=== PATIENT | male | born 1945 | race Caucasian/White ===

== ENCOUNTER → 2018-09-05 10:33 | Day surgery (SDC) | payer MEDICARE ==
[~2018-09-05 10:33] MED LIST: Benzocaine/Butamben/Tetracain (CETACAINE - SINGLE USE) 5 gm TOPICAL ONE; Buffered Lidocaine 1% SYRIN* 1 ML/SYRINGE INTRADERM ONE; Cisatracurium* 2 MG/ML MDV 5 ML ONE; Dexamethasone IV* 4 MG/ML 1 ML (4 MG) ONE; Glycopyrrolate IV* 0.2 MG/ML 1 ML VIAL ONE; Lactated Ringers 1000 ML Bag* 1,000 ML IV SCH; Levalbuterol 0.63MG/3ML NEB* UNIT OF USE INH ONE; Levalbuterol 0.63MG/3ML NEB* UNIT OF USE INH PRN; Levalbuterol HFA INHALER* 1 PUFF MDI ONE; Lidocaine 2% PF * 5 ML VIAL ONE; Midazolam* 1 MG/ML 5 ML VIAL (5 MG) ONE; Naloxone* 0.4 MG/ML 1 ML VIAL IV PRN; Neostigmine Methylsulfate* 1 MG/ML 10 ML VIAL (1 mg/ml) ONE; Ondansetron INJ* 2 MG/ML VIAL IV PRN; Ondansetron INJ* 2 MG/ML VIAL ONE; Phenylephrine 10 MG/ML VIAL* 1 ML VIAL ONE; Propofol* 10 MG/ML 20 ML BTL ONE; fentaNYL* 50 MCG/ML 2 ML VIAL (100 MCG VIAL) IV PRN; fentaNYL* 50 MCG/ML 2 ML VIAL (100 MCG VIAL) ONE
[2018-09-05 15:23] VITALS: BP 114/60
--- NOTE | 2018-09-05 22:06 | PRO ---
BRONCHOSCOPY REPORT: DATE OF PROCEDURE: 09/05/18 PROCEDURE PERFORMED: Bronchoscopy with endobronchial ultrasound-guided fine needle aspiration of mediastinal and hilar nodes for lung cancer staging. PREPROCEDURAL DIAGNOSIS: Lung cancer. ANESTHESIA: General anesthesia. ANESTHESIOLOGIST: Dr. Qiu. DESCRIPTION OF PROCEDURE: Informed consent was obtained from the patient prior to the procedure after all the risks and benefits were thoroughly explained. The patient was supine on operating room table. Appropriate time-out was agreed on by attending staff. Informed consent was obtained from the patient prior to the procedure. An Ambu scope was passed through ET tube for airway inspection. ET tube positioning confirmed to be 2 cm above the level of michelle. Scope was then advanced into the right bronchial tree which was then inspected. Lots amounts of copious secretions were found and were suctioned out. No endobronchial lesions were noted. The scope was then passed into the left bronchial tube, which was then inspected. The evidence of mild bronchomalacia was noted, no endobronchial lesions were noted. Airways are friable and bleeding with suction trauma. Bronchoscope was then withdrawn and EBUS bronchoscope was inserted. Station R4 was not significantly enlarged and was accessed with 2 passes. Rapid onsite evaluation revealed lymphatic tissue with no malignant cells. Station 7 was then accessed with 2 passes. Rapid onsite evaluation revealed lymphatic cells with no malignant cells. R10 was then accessed with also 2 passes. Rapid onsite evaluation revealed lymphatic tissue with no malignant cells. L4 was then accessed with 2 passes. Rapid onsite evaluation revealed lymphatic cells with no malignant cells. L10 was then accessed with 3 passes. Malignant cells were noted. Air dried cells were also prepared. Rest of this sample was placed in CytoLyt. The patient tolerated the procedure well. The patient was extubated and seen in Recovery in optimal condition. [id number]/[facility] #: [id number] [facility]
== END | disposition home or self-care (01) ==
LOC: OR 10:33
PROVIDERS: ATTEND Internal Medicine
DX: C34.90 Malignant neoplasm of unspecified part of unspecified bronchus or lung (principal); C77.1 Secondary and unspecified malignant neoplasm of intrathoracic lymph nodes; I10 Essential (primary) hypertension; Z95.5 Presence of coronary angioplasty implant and graft; I25.10 Atherosclerotic heart disease of native coronary artery without angina pectoris; J44.9 Chronic obstructive pulmonary disease, unspecified; I42.9 Cardiomyopathy, unspecified; Z79.01 Long term (current) use of anticoagulants; K21.9 Gastro-esophageal reflux disease without esophagitis
CPT/HCPCS: 81445; 88172; 88173; 88177; 88305; A9270-GY; J1100; J2250; J2405; J2704; J2710; J3010

== ENCOUNTER 2018-09-25 06:25 | Day surgery (SDC) | payer MEDICARE ==
[2018-09-25] MEDS ORDERED: Lidocaine 1% INJ* 10 MG/ML 30 ML SDV ONE (07:21)
[2018-09-25 08:46] VITALS: BP 141/82
--- NOTE | 2018-09-25 11:03 | OP ---
CC: Dr. Alejandro Parsons; Dr. Pandey; Dr. Calabrese; Dr. Syed OPERATIVE REPORT: DATE OF OPERATION: 09/25/18 DATE OF : 47 SURGEON: Alejandro Parsons MD EMERGENCY DEPARTMENT RN: None. ANESTHESIOLOGIST: None. PRE-OP DIAGNOSIS: Carcinoma of the lung. POST-OP DIAGNOSIS: Carcinoma of the lung. OPERATIVE PROCEDURE: Placement of 8-Burmese right subclavian PowerPort. DESCRIPTION OF PROCEDURE: The patient was supine on the operative table in the local room. The [facility] t chest and neck region was prepped with antiseptic and draped in a sterile fashion. Local infiltrat mimi anesthesia was administered. The subclavian incision was created approximately 3 cm in length. Inferior pocket was created. The port was sutured into the pocket with 2-0 Prolene. Venipuncture wa s carried out easily. The guidewire passed under fluoroscopic guidance. Catheter passed through the peel-away introducer, measured, and cut at 23 cm, attached to the port, which was already sutured in the pocket and the pocket was closed with 3- 0 and 5-0 Vicryl, followed by Steri-Strips. The port h ad good blood return and was flushed with saline solution and then final heparin solution. He tolera celena this well. He was brought to Recovery in good condition. No complications. No drains. No patho logic specimen. Sponge and instrument counts correct. Estimated blood loss less than 10 mL. [id number]/[facility] #: [id number]
== END 2018-09-25 08:46 | disposition home or self-care (01) ==
LOC: OR 06:25
PROVIDERS: ATTEND Surgery
DX: C34.92 Malignant neoplasm of unspecified part of left bronchus or lung (principal); Z87.891 Personal history of nicotine dependence; I10 Essential (primary) hypertension; I25.10 Atherosclerotic heart disease of native coronary artery without angina pectoris; Z95.5 Presence of coronary angioplasty implant and graft; K21.9 Gastro-esophageal reflux disease without esophagitis; E78.5 Hyperlipidemia, unspecified; I25.2 Old myocardial infarction; M19.90 Unspecified osteoarthritis, unspecified site
CPT/HCPCS: 71045; 76000; C1788; J1642

== ENCOUNTER 2019-10-10 09:57 | Inpatient (IN) ==
[2019-10-10] MEDS ORDERED: NS 0.9% 1000 ml BAG 1,000 ML IV ONE (10:05)
[2019-10-10] MEDS ORDERED: Morphine 4 MG/ML VIAL (1 ml) IV ONE ×2 (10:05→13:07)
[2019-10-10] MEDS ORDERED: Ondansetron 4 mg VIAL 2 MG/ML 2 ml VIAL IV ONE (10:05)
[2019-10-10 10:55] LABS: Albumin 3.6 g/dL (3.2-5.2); Albumin/Globulin Ratio 1.9 (1-3); BUN/Creatinine Ratio 25.6 (8-20); Calcium 8.2 mg/dL (8.6-10.3); EGFR African American 68.5 (>60); EGFR Non-African American 56.6 (>60); Globulin 1.9 g/dL (2-4); Potassium 3.7 mmol/L (3.5-5.0); Total Bilirubin 0.4 mg/dL (0.2-1.0); Total Protein 5.5 g/dL (6.4-8.9)
[2019-10-10] MEDS ORDERED: Iodixanol (CONTRAST) 320 MG/ML 100 ML SDV IV ONE (11:19)
[2019-10-10 11:38] LABS: Hematocrit 37 % (42-52); Hemoglobin 12.4 g/dL (14.0-18.0); Mean Corpuscular HGB Conc 33 g/dL (31-36); Mean Corpuscular Hemoglobin 33 pg (27-31); Mean Corpuscular Volume 100 fL (80-94); Mean Platelet Volume 8.3 fL (7.4-10.4); Platelet Count 174 10^3/uL (150-450); Red Blood Count 3.72 10^6 /uL (4.18-5.48); Red Cell Distribution Width 19 % (10-15); White Blood Count 16.4 10^3/uL (3.5-10.8)
[2019-10-10 12:29] LABS: ABS Lymphocytes 0.7 10^3/ul (1.0-4.8); ABS Monocytes 1.5 10^3/ul (0-0.8); Nucleated Red Blood Cells % 0.3
[2019-10-10] MEDS ORDERED: Albuterol/Ipratropium NEB.SOL (2.5/0.5 MG) 3 ML NEB.SOLN INH PRN (15:17)
[2019-10-10] MEDS: NS 0.9% 1000 ml BAG 1,000 ML IV SCH (17:04)
[2019-10-10] MEDS: Metoprolol Tartrate 5 mg VIAL 5 ml VIAL (1 mg/ml) IV SCH ×2 (17:54→22:43)
[2019-10-10] MEDS: Enoxaparin 80 MG/0.8 ML SYR(*) SUBCUT SCH (17:54)
[2019-10-10] MEDS: methylPREDNISolone SOD 40 mg/ml 1 ml VIAL IV SCH (17:56)
[2019-10-10] MEDS ORDERED: Piperacillin/Tazobac ADVAN(*) 3.375 GM in NS 0.9% 100 ml BAG 100 ML IV ONE (23:30)
[2019-10-10 23:32] LABS: Hematocrit 39 % (42-52); Hemoglobin 13.1 g/dL (14.0-18.0); Mean Corpuscular HGB Conc 34 g/dL (31-36); Mean Corpuscular Hemoglobin 34 pg (27-31); Mean Corpuscular Volume 100 fL (80-94); Mean Platelet Volume 7.4 fL (7.4-10.4); Platelet Count 159 10^3/uL (150-450); Red Blood Count 3.89 10^6 /uL (4.18-5.48); Red Cell Distribution Width 20 % (10-15); White Blood Count 20.9 10^3/uL (3.5-10.8)
[2019-10-10] MEDS ORDERED: Zosyn per Pharmacy NOTE FOLLOW UP SCH ×2 (23:45)
[2019-10-10 23:49] LABS: BUN/Creatinine Ratio 22.8 (8-20); Calcium 7.7 mg/dL (8.6-10.3); EGFR African American 67.3 (>60); EGFR Non-African American 55.6 (>60); Potassium 4.7 mmol/L (3.5-5.0)
[2019-10-10 23:56] LABS: ABS Lymphocytes 0.3 10^3/ul (1.0-4.8); ABS Monocytes 1.6 10^3/ul (0-0.8); ABS Nucleated RBC 0.1 10^3/ul; Lymphocyte % 1.2 %; Nucleated Red Blood Cells % 0.2
[2019-10-10 23:57] LABS: Polychromasia 1+
[2019-10-11 00:03] LABS: Urine Appearance Clear; Urine Bilirubin Negative (Negative); Urine Blood 1+ (Negative); Urine Color Yellow; Urine Glucose Negative (Negative); Urine Ketones Negative (Negative); Urine Nitrite Negative (Negative); Urine Protein Negative (Negative); Urine Specific Gravity 1.035 (1.010-1.030); Urine Urobilinogen Negative (Negative)
[2019-10-11 00:06] LABS: Urine Bacteria Absent (Absent); Urine Red Blood Cell Trace(0-2/hpf) (Absent); Urine Squamous Epithelial Cell Present (Absent); Urine White Blood Cell Absent (Absent)
[2019-10-11] MEDS: Metoprolol Tartrate 5 mg VIAL 5 ml VIAL (1 mg/ml) IV SCH ×4 (04:03→21:51)
[2019-10-11] MEDS: Enoxaparin 80 MG/0.8 ML SYR(*) SUBCUT SCH (04:07)
[2019-10-11] MEDS: NS 0.9% 1000 ml BAG 1,000 ML IV SCH ×2 (04:07→14:45)
[2019-10-11] MEDS: ZOSYN 3.375 GM Q8H per EXTENDED INFUSION IV SCH ×3 (04:10→20:03)
[2019-10-11 06:25] LABS: Hematocrit 38 % (42-52); Hemoglobin 12.8 g/dL (14.0-18.0); Mean Corpuscular HGB Conc 34 g/dL (31-36); Mean Corpuscular Hemoglobin 34 pg (27-31); Mean Corpuscular Volume 100 fL (80-94); Mean Platelet Volume 7.8 fL (7.4-10.4); Platelet Count 149 10^3/uL (150-450); Red Cell Distribution Width 20 % (10-15); White Blood Count 21.5 10^3/uL (3.5-10.8)
[2019-10-11 06:29] LABS: ABS Basophils 0.1 10^3/ul (0-0.2); ABS Lymphocytes 0.3 10^3/ul (1.0-4.8); ABS Monocytes 1.8 10^3/ul (0-0.8); Lymphocyte % 1.5 %
[2019-10-11 06:41] LABS: BUN/Creatinine Ratio 23.3 (8-20); Calcium 7.3 mg/dL (8.6-10.3); EGFR African American 66.1 (>60); EGFR Non-African American 54.6 (>60); Potassium 4.2 mmol/L (3.5-5.0)
[2019-10-11] MEDS: Tiotropium Brom/Olodaterol MDI INH SCH (08:11)
[2019-10-11] MEDS: Pantoprazole VIAL 40 MG VIAL IV SCH (08:28)
[2019-10-11] MEDS: methylPREDNISolone SOD 40 mg/ml 1 ml VIAL IV SCH (16:01)
[2019-10-12] MEDS: NS 0.9% 1000 ml BAG 1,000 ML IV SCH ×3 (01:08→20:42)
[2019-10-12] MEDS: ZOSYN 3.375 GM Q8H per EXTENDED INFUSION IV SCH ×3 (04:20→20:39)
[2019-10-12] MEDS: Metoprolol Tartrate 5 mg VIAL 5 ml VIAL (1 mg/ml) IV SCH ×4 (04:20→22:42)
[2019-10-12 06:21] LABS: ABS Lymphocytes 0.2 10^3/ul (1.0-4.8); ABS Monocytes 0.8 10^3/ul (0-0.8); Hematocrit 34 % (42-52); Hemoglobin 11.2 g/dL (14.0-18.0); Lymphocyte % 1.9 %; Mean Corpuscular HGB Conc 33 g/dL (31-36); Mean Corpuscular Hemoglobin 33 pg (27-31); Mean Corpuscular Volume 100 fL (80-94); Mean Platelet Volume 7.9 fL (7.4-10.4); Platelet Count 124 10^3/uL (150-450); Red Cell Distribution Width 20 % (10-15); White Blood Count 11.2 10^3/uL (3.5-10.8)
[2019-10-12 06:31] LABS: BUN/Creatinine Ratio 29.2 (8-20); Calcium 7.6 mg/dL (8.6-10.3); EGFR African American 65.5 (>60); EGFR Non-African American 54.1 (>60); Magnesium 2.2 mg/dL (1.9-2.7); Potassium 3.7 mmol/L (3.5-5.0)
[2019-10-12] MEDS: Tiotropium Brom/Olodaterol MDI INH SCH (10:27)
[2019-10-12] MEDS: methylPREDNISolone SOD 40 mg/ml 1 ml VIAL IV SCH ×2 (10:28→17:02)
[2019-10-12] MEDS: Pantoprazole VIAL 40 MG VIAL IV SCH (10:42)
[2019-10-12] MEDS ORDERED: Regadenoson 0.4 MG/5 ML SYRINGE ONE (13:13)
[2019-10-12] MEDS ORDERED: Heparin 5000 UNITS/ML VIAL(*) 1 ml vial IV SCH (15:00)
[2019-10-12] MEDS: Heparin DRIP 25,000 UNITS(*) 25,000 UNITS/500 ML BAG IV SCH (16:52)
[2019-10-13] MEDS: Metoprolol Tartrate 5 mg VIAL 5 ml VIAL (1 mg/ml) IV SCH ×3 (04:18→16:59)
[2019-10-13] MEDS: ZOSYN 3.375 GM Q8H per EXTENDED INFUSION IV SCH ×3 (04:19→21:45)
[2019-10-13 06:12] LABS: ABS Lymphocytes 0.2 10^3/ul (1.0-4.8); ABS Monocytes 0.8 10^3/ul (0-0.8); Hematocrit 28 % (42-52); Hemoglobin 9.2 g/dL (14.0-18.0); Lymphocyte % 1.9 %; Mean Corpuscular HGB Conc 33 g/dL (31-36); Mean Corpuscular Hemoglobin 34 pg (27-31); Mean Corpuscular Volume 101 fL (80-94); Red Blood Count 2.73 10^6 /uL (4.18-5.48); Red Cell Distribution Width 20 % (10-15); White Blood Count 11.2 10^3/uL (3.5-10.8)
[2019-10-13 06:27] LABS: BUN/Creatinine Ratio 32.4 (8-20); EGFR African American 86.6 (>60); EGFR Non-African American 71.6 (>60); Potassium 3.4 mmol/L (3.5-5.0)
[2019-10-13 06:38] LABS: Mean Platelet Volume 8.3 fL (7.4-10.4); Platelet Count 98 10^3/uL (150-450)
[2019-10-13] MEDS: NS 0.9% 1000 ml BAG 1,000 ML IV SCH ×2 (07:30→18:55)
[2019-10-13] MEDS ORDERED: Potassium Chlor 20 meq TAB.ER PO ONE (08:19)
[2019-10-13] MEDS: Heparin DRIP 25,000 UNITS(*) 25,000 UNITS/500 ML BAG IV SCH (09:09)
[2019-10-13] MEDS ORDERED: KCL 20 MEQ/100 ML IVPREMIX 20 MEQ/100 ML BAG IV ONE (10:06)
[2019-10-13] MEDS: Pantoprazole VIAL 40 MG VIAL IV SCH (10:35)
[2019-10-13] MEDS: methylPREDNISolone SOD 40 mg/ml 1 ml VIAL IV SCH ×2 (10:35→16:59)
[2019-10-13] MEDS: Tiotropium Brom/Olodaterol MDI INH SCH (12:13)
[2019-10-13] MEDS: Enoxaparin 80 MG/0.8 ML SYR(*) SUBCUT SCH (13:26)
[2019-10-13 13:38] LABS: Hematocrit 27 % (42-52); Hemoglobin 9.2 g/dL (14.0-18.0); Mean Corpuscular HGB Conc 34 g/dL (31-36); Mean Corpuscular Hemoglobin 34 pg (27-31); Mean Corpuscular Volume 100 fL (80-94); Mean Platelet Volume 8.2 fL (7.4-10.4); Platelet Count 100 10^3/uL (150-450); Red Blood Count 2.68 10^6 /uL (4.18-5.48); Red Cell Distribution Width 20 % (10-15); White Blood Count 11.4 10^3/uL (3.5-10.8)
[2019-10-13] MEDS ORDERED: Metoprolol Tartrate 5 mg VIAL 5 ml VIAL (1 mg/ml) IV PRN (22:48)
[2019-10-14] MEDS: Enoxaparin 80 MG/0.8 ML SYR(*) SUBCUT SCH ×2 (01:09→13:55)
[2019-10-14] MEDS: NS 0.9% 1000 ml BAG 1,000 ML IV SCH (04:49)
[2019-10-14] MEDS: ZOSYN 3.375 GM Q8H per EXTENDED INFUSION IV SCH ×3 (04:49→19:52)
[2019-10-14 06:39] LABS: ABS Lymphocytes 0.2 10^3/ul (1.0-4.8); ABS Monocytes 0.7 10^3/ul (0-0.8); Hematocrit 26 % (42-52); Hemoglobin 8.8 g/dL (14.0-18.0); Lymphocyte % 2.1 %; Mean Corpuscular HGB Conc 34 g/dL (31-36); Mean Corpuscular Hemoglobin 34 pg (27-31); Mean Corpuscular Volume 100 fL (80-94); Mean Platelet Volume 8.3 fL (7.4-10.4); Nucleated Red Blood Cells % 0.2; Platelet Count 104 10^3/uL (150-450); Red Blood Count 2.62 10^6 /uL (4.18-5.48); Red Cell Distribution Width 20 % (10-15); White Blood Count 9.4 10^3/uL (3.5-10.8)
[2019-10-14] MEDS: methylPREDNISolone SOD 40 mg/ml 1 ml VIAL IV SCH ×2 (07:51→18:26)
[2019-10-14] MEDS: Tiotropium Brom/Olodaterol MDI INH SCH (07:53)
[2019-10-14] MEDS: Pantoprazole VIAL 40 MG VIAL IV SCH (07:53)
[2019-10-14 08:45] LABS: BUN/Creatinine Ratio 37.6 (8-20); Calcium 7.7 mg/dL (8.6-10.3); EGFR African American 96.4 (>60); EGFR Non-African American 79.6 (>60); Potassium 3.7 mmol/L (3.5-5.0)
[2019-10-14 09:59] LABS: Albumin 2.7 g/dL (3.2-5.2); Albumin/Globulin Ratio 1.5 (1-3); Globulin 1.8 g/dL (2-4); Indirect Bilirubin 0.3 mg/dL (0.3-1.0); Total Bilirubin 0.4 mg/dL (0.2-1.0); Total Protein 4.5 g/dL (6.4-8.9)
[2019-10-14] MEDS: Metoprolol Tartrate 5 mg VIAL 5 ml VIAL (1 mg/ml) IV SCH (18:55)
[2019-10-15] MEDS: Enoxaparin 80 MG/0.8 ML SYR(*) SUBCUT SCH (00:21)
[2019-10-15] MEDS: ZOSYN 3.375 GM Q8H per EXTENDED INFUSION IV SCH (04:10)
[2019-10-15 05:15] LABS: ABS Lymphocytes 0.2 10^3/ul (1.0-4.8); ABS Monocytes 0.7 10^3/ul (0-0.8); Hematocrit 26 % (42-52); Hemoglobin 8.6 g/dL (14.0-18.0); Lymphocyte % 2.4 %; Mean Corpuscular HGB Conc 33 g/dL (31-36); Mean Corpuscular Hemoglobin 34 pg (27-31); Mean Corpuscular Volume 100 fL (80-94); Mean Platelet Volume 8.2 fL (7.4-10.4); Nucleated Red Blood Cells % 0.1; Platelet Count 106 10^3/uL (150-450); Red Blood Count 2.58 10^6 /uL (4.18-5.48); Red Cell Distribution Width 19 % (10-15); White Blood Count 7.6 10^3/uL (3.5-10.8)
[2019-10-15 05:30] LABS: Calcium 7.4 mg/dL (8.6-10.3); EGFR African American 97.6 (>60); EGFR Non-African American 80.6 (>60); Potassium 3.9 mmol/L (3.5-5.0)
[2019-10-15] MEDS: Pantoprazole VIAL 40 MG VIAL IV SCH (08:17)
[2019-10-15] MEDS: Tiotropium Brom/Olodaterol MDI INH SCH (08:17)
[2019-10-15] MEDS: methylPREDNISolone SOD 40 mg/ml 1 ml VIAL IV SCH ×2 (08:17→11:59)
[2019-10-15 08:52] VITALS: BP 119/60
[2019-10-15] MEDS ORDERED: Multivitamins/Minerals TAB PO SCH (09:00)
[2019-10-15] MEDS ORDERED: Aspirin EC 81 mg TAB.EC (enteric coated) PO SCH (09:00)
== END 2019-10-15 11:56 | disposition home or self-care (01) | DRG 394 ==
LOC: ED 09:57 → SSU 16:02
PROVIDERS: ADMIT Internal Medicine; ATTEND Internal Medicine

== ENCOUNTER 2019-11-10 11:10 | Inpatient (IN) ==
[2019-11-12] MEDS: Fluconazole 200 MG IVPREMIX 200 MG/100 ML BAG IVPB SCH (13:21)
[2019-11-12] MEDS: TPN CENTRAL STANDARD BASE B CENT\\PICC SCH (17:20)
[2019-11-12] MEDS ORDERED: Morphine 10 MG/ML VIAL (1 ml) IV ONE (17:59)
[2019-11-12] MEDS ORDERED: Enoxaparin 80 MG/0.8 ML SYR SUBCUT SCH (18:00)
[2019-11-12] MEDS: Enoxaparin 80 MG/0.8 ML SYR SUBCUT SCH (20:50)
[2019-11-12] MEDS: Hydrocortisone INJ 100 MG/2ML 2 ML VIAL IV SCH (20:57)
[2019-11-13 05:03] LABS: Hematocrit 23 % (42-52); Hemoglobin 7.6 g/dL (14.0-18.0); Mean Corpuscular HGB Conc 33 g/dL (31-36); Mean Corpuscular Hemoglobin 33 pg (27-31); Mean Corpuscular Volume 102 fL (80-94); Mean Platelet Volume 8.3 fL (7.4-10.4); Platelet Count 147 10^3/uL (150-450); Red Blood Count 2.28 10^6 /uL (4.18-5.48); Red Cell Distribution Width 22 % (10-15); White Blood Count 9.1 10^3/uL (3.5-10.8)
[2019-11-13 05:20] LABS: Albumin 2.4 g/dL (3.2-5.2); Albumin/Globulin Ratio 1.3 (1-3); Calcium 8.2 mg/dL (8.6-10.3); EGFR African American 96.4 (>60); EGFR Non-African American 79.6 (>60); Globulin 1.9 g/dL (2-4); Potassium 4.4 mmol/L (3.5-5.0); Total Bilirubin 0.3 mg/dL (0.2-1.0); Total Protein 4.3 g/dL (6.4-8.9)
[2019-11-13] MEDS: Tiotropium Brom/Olodaterol MDI INH SCH (08:39)
[2019-11-13] MEDS: Pantoprazole VIAL 40 MG VIAL IV SCH (08:39)
[2019-11-13] MEDS: Enoxaparin 80 MG/0.8 ML SYR SUBCUT SCH ×2 (08:40→21:34)
[2019-11-13] MEDS: Hydrocortisone INJ 100 MG/2ML 2 ML VIAL IV SCH ×2 (08:40→21:43)
[2019-11-13 08:53] LABS: Polychromasia 2+
[2019-11-13 08:54] LABS: ABS Basophils 0.1 10^3/ul (0-0.2); ABS Lymphocytes 0.6 10^3/ul (1.0-4.8); ABS Monocytes 0.7 10^3/ul (0-0.8); ABS Neutrophils 7.6 10^3/ul (1.5-7.7); ABS Nucleated RBC 0.1 10^3/ul; Eosinophil % 0.3 %; Lymphocyte % 7.1 %; Nucleated Red Blood Cells % 1.1
[2019-11-13] MEDS: D5W IVPB SCH (09:07)
[2019-11-13] MEDS: TRIMETH IVPB SCH (09:07)
[2019-11-13] MEDS: SULFAMETHOXAZOLE IVPB SCH (09:07)
[2019-11-13] MEDS: Fluconazole 200 MG IVPREMIX 200 MG/100 ML BAG IVPB SCH (13:12)
[2019-11-13] MEDS: TPN CENTRAL STANDARD BASE B CENT\\PICC SCH (17:17)
[2019-11-14 05:28] LABS: Magnesium 1.7 mg/dL (1.9-2.7)
[2019-11-14] MEDS: Enoxaparin 80 MG/0.8 ML SYR SUBCUT SCH ×2 (08:44→23:07)
[2019-11-14] MEDS: Tiotropium Brom/Olodaterol MDI INH SCH (08:46)
[2019-11-14] MEDS: Pantoprazole VIAL 40 MG VIAL IV SCH (08:47)
[2019-11-14] MEDS: Hydrocortisone INJ 100 MG/2ML 2 ML VIAL IV SCH ×2 (08:49→23:08)
[2019-11-14] MEDS: TPN CENTRAL STANDARD BASE B CENT\\PICC SCH (18:10)
[2019-11-14 18:59] LABS: Hematocrit 23 % (42-52); Hemoglobin 7.3 g/dL (14.0-18.0); Mean Corpuscular HGB Conc 32 g/dL (31-36); Mean Corpuscular Hemoglobin 33 pg (27-31); Mean Corpuscular Volume 103 fL (80-94); Mean Platelet Volume 8.3 fL (7.4-10.4); Platelet Count 149 10^3/uL (150-450); Red Cell Distribution Width 22 % (10-15); White Blood Count 8.4 10^3/uL (3.5-10.8)
[2019-11-14] MEDS: Morphine 2 MG/ML SYRINGE IV PRN (19:16)
[2019-11-14 19:38] LABS: ABS Lymphocytes 0.7 10^3/ul (1.0-4.8); ABS Monocytes 0.7 10^3/ul (0-0.8); ABS Neutrophils 6.9 10^3/ul (1.5-7.7); ABS Nucleated RBC 0.1 10^3/ul; Eosinophil % 0.2 %; Lymphocyte % 8.7 %; Nucleated Red Blood Cells % 1.7
[2019-11-14 19:41] LABS: Polychromasia 2+
[2019-11-14 20:30] LABS: Albumin 2.3 g/dL (3.2-5.2); Calcium 7.6 mg/dL (8.6-10.3); Magnesium 1.7 mg/dL (1.9-2.7); Potassium 4.7 mmol/L (3.5-5.0); Total Bilirubin 0.3 mg/dL (0.2-1.0)
[2019-11-14 20:36] LABS: Albumin/Globulin Ratio 1.4 (1-3); EGFR African American 88.6 (>60); EGFR Non-African American 73.2 (>60); Globulin 1.6 g/dL (2-4); Phosphorus 3.4 mg/dL (2.5-5.0); Total Protein 3.9 g/dL (6.4-8.9)
[2019-11-15 06:49] LABS: Hematocrit 24 % (42-52); Mean Corpuscular HGB Conc 33 g/dL (31-36); Mean Corpuscular Hemoglobin 33 pg (27-31); Mean Corpuscular Volume 100 fL (80-94); Mean Platelet Volume 8.6 fL (7.4-10.4); Platelet Count 123 10^3/uL (150-450); Red Blood Count 2.43 10^6 /uL (4.18-5.48); Red Cell Distribution Width 20 % (10-15); White Blood Count 8.2 10^3/uL (3.5-10.8)
[2019-11-15] MEDS: Tiotropium Brom/Olodaterol MDI INH SCH (08:58)
[2019-11-15] MEDS: Enoxaparin 80 MG/0.8 ML SYR SUBCUT SCH ×2 (09:03→09:28)
[2019-11-15] MEDS: Hydrocortisone INJ 100 MG/2ML 2 ML VIAL IV SCH ×2 (09:29→22:06)
[2019-11-15] MEDS: Pantoprazole VIAL 40 MG VIAL IV SCH (09:29)
[2019-11-15] MEDS: TPN CENTRAL STANDARD BASE B CENT\\PICC SCH (17:50)
[2019-11-15] MEDS: Enoxaparin 60 MG/0.6 ML SYR SUBCUT SCH (22:05)
[2019-11-16] MEDS: Tiotropium Brom/Olodaterol MDI INH SCH (09:31)
[2019-11-16] MEDS: Enoxaparin 60 MG/0.6 ML SYR SUBCUT SCH ×2 (09:32→20:42)
[2019-11-16] MEDS: Hydrocortisone INJ 100 MG/2ML 2 ML VIAL IV SCH ×2 (09:34→20:44)
[2019-11-16] MEDS: Pantoprazole VIAL 40 MG VIAL IV SCH (09:46)
[2019-11-16] MEDS: D5W IVPB SCH (09:47)
[2019-11-16] MEDS: TRIMETH IVPB SCH (09:47)
[2019-11-16] MEDS: SULFAMETHOXAZOLE IVPB SCH (09:47)
[2019-11-16] MEDS ORDERED: Morphine 2 MG/ML SYRINGE IV ONE (12:22)
[2019-11-16] MEDS: TPN CENTRAL STANDARD BASE B CENT\\PICC SCH (17:54)
[2019-11-17 06:02] LABS: Albumin 2.2 g/dL (3.2-5.2); Calcium 7.5 mg/dL (8.6-10.3); Magnesium 1.7 mg/dL (1.9-2.7); Potassium 4.6 mmol/L (3.5-5.0); Total Bilirubin 0.3 mg/dL (0.2-1.0)
[2019-11-17 06:08] LABS: Albumin/Globulin Ratio 1.4 (1-3); BUN/Creatinine Ratio 27.4 (8-20); EGFR African American 108.4 (>60); EGFR Non-African American 89.6 (>60); Globulin 1.6 g/dL (2-4); Phosphorus 2.3 mg/dL (2.5-5.0); Total Protein 3.8 g/dL (6.4-8.9)
[2019-11-17] MEDS: Tiotropium Brom/Olodaterol MDI INH SCH (08:41)
[2019-11-17] MEDS: Enoxaparin 60 MG/0.6 ML SYR SUBCUT SCH ×2 (08:42→21:29)
[2019-11-17] MEDS: Hydrocortisone INJ 100 MG/2ML 2 ML VIAL IV SCH ×2 (08:43→21:29)
[2019-11-17] MEDS: Pantoprazole VIAL 40 MG VIAL IV SCH (08:44)
[2019-11-17] MEDS: TPN CENTRAL STANDARD BASE B CENT\\PICC SCH (17:36)
[2019-11-18 08:01] LABS: ABS Lymphocytes 0.6 10^3/ul (1.0-4.8); ABS Monocytes 0.7 10^3/ul (0-0.8); ABS Neutrophils 3.9 10^3/ul (1.5-7.7); ABS Nucleated RBC 0.2 10^3/ul; Eosinophil % 0.2 %; Hematocrit 20 % (42-52); Hemoglobin 6.8 g/dL (14.0-18.0); Lymphocyte % 11.8 %; Mean Corpuscular HGB Conc 33 g/dL (31-36); Mean Corpuscular Hemoglobin 34 pg (27-31); Mean Corpuscular Volume 102 fL (80-94); Mean Platelet Volume 8.9 fL (7.4-10.4); Nucleated Red Blood Cells % 3.8; Platelet Count 113 10^3/uL (150-450); Red Blood Count 2.01 10^6 /uL (4.18-5.48); Red Cell Distribution Width 21 % (10-15); White Blood Count 5.2 10^3/uL (3.5-10.8)
[2019-11-18 08:50] LABS: Microcytosis 1+; Polychromasia 1+
[2019-11-18] MEDS: Tiotropium Brom/Olodaterol MDI INH SCH (09:04)
[2019-11-18] MEDS: Enoxaparin 60 MG/0.6 ML SYR SUBCUT SCH ×2 (10:15→21:06)
[2019-11-18] MEDS: Hydrocortisone INJ 100 MG/2ML 2 ML VIAL IV SCH ×2 (10:20→21:09)
[2019-11-18] MEDS: Pantoprazole VIAL 40 MG VIAL IV SCH (10:21)
[2019-11-18] MEDS: D5W IVPB SCH (11:02)
[2019-11-18] MEDS: TRIMETH IVPB SCH (11:02)
[2019-11-18] MEDS: SULFAMETHOXAZOLE IVPB SCH (11:02)
[2019-11-18] MEDS ORDERED: Morphine 10 MG/ML VIAL (1 ml) IV ONE (14:00)
[2019-11-18] MEDS: TPN CENTRAL STANDARD BASE B CENT\\PICC SCH (17:27)
[2019-11-19] MEDS: Tiotropium Brom/Olodaterol MDI INH SCH (08:34)
[2019-11-19] MEDS: Enoxaparin 60 MG/0.6 ML SYR SUBCUT SCH ×2 (08:35→21:17)
[2019-11-19] MEDS: Morphine 2 MG/ML SYRINGE IV PRN (11:44)
[2019-11-19] MEDS ORDERED: Morphine 2 MG/ML SYRINGE IV ONE (14:00)
[2019-11-20 06:39] LABS: Hematocrit 24 % (42-52); Hemoglobin 8.3 g/dL (14.0-18.0); Mean Corpuscular HGB Conc 34 g/dL (31-36); Mean Corpuscular Hemoglobin 34 pg (27-31); Mean Corpuscular Volume 99 fL (80-94); Mean Platelet Volume 8.4 fL (7.4-10.4); Platelet Count 127 10^3/uL (150-450); Red Blood Count 2.45 10^6 /uL (4.18-5.48); Red Cell Distribution Width 20 % (10-15); White Blood Count 8.3 10^3/uL (3.5-10.8)
[2019-11-20 06:58] LABS: Albumin 2.4 g/dL (3.2-5.2); Albumin/Globulin Ratio 1.2 (1-3); BUN/Creatinine Ratio 28.9 (8-20); Calcium 7.4 mg/dL (8.6-10.3); EGFR African American 121.6 (>60); EGFR Non-African American 100.5 (>60); Magnesium 1.7 mg/dL (1.9-2.7); Phosphorus 4.1 mg/dL (2.5-5.0); Potassium 4.1 mmol/L (3.5-5.0); Total Bilirubin 0.4 mg/dL (0.2-1.0); Total Protein 4.4 g/dL (6.4-8.9)
[2019-11-20 07:46] LABS: ABS Lymphocytes 0.7 10^3/ul (1.0-4.8); ABS Monocytes 0.8 10^3/ul (0-0.8); ABS Neutrophils 6.7 10^3/ul (1.5-7.7); ABS Nucleated RBC 0.1 10^3/ul; Eosinophil % 0.5 %; Lymphocyte % 8.5 %; Nucleated Red Blood Cells % 1.4
[2019-11-20 07:50] LABS: Polychromasia 1+
[2019-11-20] MEDS: Tiotropium Brom/Olodaterol MDI INH SCH (08:36)
[2019-11-20] MEDS: Enoxaparin 60 MG/0.6 ML SYR SUBCUT SCH ×2 (08:40→21:37)
[2019-11-20] MEDS: Sulfamethox/Trimethoprim DS TAB 800/160 mg PO SCH (08:55)
[2019-11-20] MEDS: Morphine 2 MG/ML SYRINGE IV PRN (09:15)
[2019-11-20] MEDS ORDERED: Morphine 2 MG/ML SYRINGE IV ONE (10:15)
[2019-11-20] MEDS ORDERED: Morphine 10 MG/ML VIAL (1 ml) IV ONE (10:25)
[2019-11-21] MEDS: Enoxaparin 60 MG/0.6 ML SYR SUBCUT SCH ×2 (09:39→21:09)
[2019-11-21] MEDS: Tiotropium Brom/Olodaterol MDI INH SCH (09:39)
[2019-11-21 12:14] LABS: Corrected Retic Count 3.1 % (0.5-1.5); Hematocrit for Retic CNT 26 % (42-52); Immature Retic Fraction 0.76; RBC Retic Count 2.62 10^6/uL (4.18-5.48)
[2019-11-21] MEDS: Morphine 2 MG/ML SYRINGE IV PRN (18:21)
[2019-11-21] MEDS ORDERED: Sodium Phosphate ADULT ENEMA 133 ML BTL ONE (19:04)
[2019-11-21] MEDS ORDERED: Morphine 2 MG/ML SYRINGE ONE (19:05)
[2019-11-21] MEDS ORDERED: Sodium Phosphate ADULT ENEMA 133 ML BTL PR ONE (19:30)
[2019-11-21] MEDS ORDERED: Morphine 2 MG/ML SYRINGE IV ONE (19:30)
[2019-11-21] MEDS ORDERED: Mineral Oil ENEMA 118 ML/BOTTLE BOTTLE PR PRN (22:10)
[2019-11-21] MEDS ORDERED: Sodium Phosphate ADULT ENEMA 133 ML BTL PR PRN (22:10)
[2019-11-22] MEDS: Tiotropium Brom/Olodaterol MDI INH SCH (09:49)
[2019-11-22] MEDS: Enoxaparin 60 MG/0.6 ML SYR SUBCUT SCH ×2 (09:50→21:48)
[2019-11-22 10:35] LABS: Hematocrit 27 % (42-52); Hemoglobin 9.1 g/dL (14.0-18.0); Mean Corpuscular HGB Conc 34 g/dL (31-36); Mean Corpuscular Hemoglobin 33 pg (27-31); Mean Corpuscular Volume 98 fL (80-94); Mean Platelet Volume 8.1 fL (7.4-10.4); Platelet Count 122 10^3/uL (150-450); Red Blood Count 2.76 10^6 /uL (4.18-5.48); Red Cell Distribution Width 20 % (10-15); White Blood Count 8.9 10^3/uL (3.5-10.8)
[2019-11-22 10:52] LABS: Albumin 2.7 g/dL (3.2-5.2); Albumin/Globulin Ratio 1.2 (1-3); BUN/Creatinine Ratio 24.4 (8-20); Calcium 7.6 mg/dL (8.6-10.3); EGFR African American 105.5 (>60); EGFR Non-African American 87.2 (>60); Globulin 2.2 g/dL (2-4); Potassium 3.8 mmol/L (3.5-5.0); Total Bilirubin 0.4 mg/dL (0.2-1.0); Total Protein 4.9 g/dL (6.4-8.9)
[2019-11-22 11:24] LABS: ABS Lymphocytes 0.6 10^3/ul (1.0-4.8); ABS Monocytes 0.9 10^3/ul (0-0.8); ABS Neutrophils 7.4 10^3/ul (1.5-7.7); Eosinophil % 0.1 %; Lymphocyte % 6.4 %; Nucleated Red Blood Cells % 0.3
[2019-11-22 16:45] LABS: Urine Appearance Clear; Urine Bilirubin Negative (Negative); Urine Blood Negative (Negative); Urine Color Yellow; Urine Glucose Negative (Negative); Urine Ketones Negative (Negative); Urine Nitrite Negative (Negative); Urine Protein Negative (Negative); Urine Specific Gravity 1.006 (1.010-1.030); Urine Urobilinogen Negative (Negative)
[2019-11-23] MEDS ORDERED: Lidocaine 4% GEL 10 GM TUBE TOPICAL ONE (09:43)
[2019-11-23] MEDS: Enoxaparin 60 MG/0.6 ML SYR SUBCUT SCH ×2 (10:12→20:50)
[2019-11-23] MEDS: Tiotropium Brom/Olodaterol MDI INH SCH (10:14)
[2019-11-23] MEDS: Morphine 2 MG/ML SYRINGE IV PRN (11:28)
[2019-11-23] MEDS: Sulfamethox/Trimethoprim DS TAB 800/160 mg PO SCH (12:48)
[2019-11-23] MEDS ORDERED: Anidulafungin 200 MG in NS 0.9% 250 ml 200 ML IVPB SCH (15:00)
[2019-11-23] MEDS ORDERED: Anidulafungin 200 MG in NS 0.9% 250 ml 200 ML IVPB ONE (15:30)
[2019-11-24] MEDS ORDERED: Morphine 2 MG/ML SYRINGE IV ONE ×2 (08:48→09:00)
[2019-11-24] MEDS ORDERED: Morphine 10 MG/ML VIAL (1 ml) IV ONE (09:00)
[2019-11-24] MEDS: Enoxaparin 60 MG/0.6 ML SYR SUBCUT SCH ×2 (09:10→20:50)
[2019-11-24] MEDS: Tiotropium Brom/Olodaterol MDI INH SCH (09:15)
[2019-11-24] MEDS: Anidulafungin 100 MG in NS 0.9% 100 ml BAG 100 ML IVPB SCH (15:13)
[2019-11-25] MEDS: Morphine 2 MG/ML SYRINGE IV PRN ×2 (03:57→21:51)
[2019-11-25] MEDS ORDERED: Polyethylene Glycol 3350 17 GM PACKET PO SCH (09:00)
[2019-11-25] MEDS ORDERED: Iodixanol (CONTRAST) 320 MG/ML 100 ML SDV IV ONE (10:27)
[2019-11-25] MEDS: Sulfamethox/Trimethoprim DS TAB 800/160 mg PO SCH (11:38)
[2019-11-25] MEDS: Tiotropium Brom/Olodaterol MDI INH SCH (11:40)
[2019-11-25] MEDS: oxyCODONE/Acetamin 5/325 mg TAB PO PRN ×2 (11:52→19:30)
[2019-11-25] MEDS: Enoxaparin 60 MG/0.6 ML SYR SUBCUT SCH (14:57)
[2019-11-25] MEDS: Anidulafungin 100 MG in NS 0.9% 100 ml BAG 100 ML IVPB SCH (15:01)
[2019-11-26] MEDS: Tiotropium Brom/Olodaterol MDI INH SCH (09:50)
[2019-11-26 10:27] LABS: Hematocrit 30 % (42-52); Hemoglobin 9.9 g/dL (14.0-18.0); Mean Corpuscular HGB Conc 33 g/dL (31-36); Mean Corpuscular Hemoglobin 33 pg (27-31); Mean Corpuscular Volume 99 fL (80-94); Mean Platelet Volume 8.1 fL (7.4-10.4); Platelet Count 226 10^3/uL (150-450); Red Blood Count 3.03 10^6 /uL (4.18-5.48); Red Cell Distribution Width 20 % (10-15); White Blood Count 7.7 10^3/uL (3.5-10.8)
[2019-11-26 10:40] LABS: BUN/Creatinine Ratio 16.4 (8-20); Calcium 8.4 mg/dL (8.6-10.3); EGFR African American 79.4 (>60); EGFR Non-African American 65.6 (>60); Potassium 4.7 mmol/L (3.5-5.0)
[2019-11-26 10:41] LABS: INR 1.05 (0.82-1.09)
[2019-11-26 11:48] LABS: ABS Basophils 0.1 10^3/ul (0-0.2); ABS Lymphocytes 0.6 10^3/ul (1.0-4.8); ABS Monocytes 0.8 10^3/ul (0-0.8); ABS Neutrophils 6.3 10^3/ul (1.5-7.7); Eosinophil % 0.5 %; Lymphocyte % 7.9 %; Nucleated Red Blood Cells % 0.2
[2019-11-26] MEDS ORDERED: Naloxone 0.4 mg VIAL 0.4 mg/ml 1 ml VIAL IV PRN ×2 (15:56)
[2019-11-26] MEDS ORDERED: fentaNYL 100 mcg/2 ml 50 MCG/ML VIAL IV PRN (15:56)
[2019-11-26 17:50] VITALS: BP 123/70
== END 2019-11-26 12:08 | disposition short-term general hospital (02) | DRG 949 ==
LOC: PMRU 11-12 08:30
PROVIDERS: ADMIT Physical Medicine & Rehabilitation; ATTEND Physical Medicine & Rehabilitation

== ENCOUNTER 2019-11-26 11:01 | Inpatient (IN) ==
[2019-11-26] MEDS ORDERED: ceFAZolin 2 GM PREMIX 2 GM/50 ML BAG IVPB ONE (12:30)
[2019-11-26] MEDS ORDERED: Ondansetron 4 mg VIAL 2 MG/ML 2 ml VIAL IV PRN (12:42)
[2019-11-26] MEDS ORDERED: Lactated Ringers 1000 ml BAG 1,000 ML IV SCH (13:00)
[2019-11-26] MEDS: Anidulafungin 100 MG in NS 0.9% 100 ml BAG 100 ML IVPB SCH (14:02)
[2019-11-26] MEDS ORDERED: Hydrocortisone INJ 100 MG/2ML 2 ML VIAL ONE (14:58)
[2019-11-26] MEDS ORDERED: Bacitracin OINTMENT TUBE ONE (15:43)
[2019-11-26] MEDS ORDERED: Lidocaine 1% VIAL 10 MG/ML VIAL ONE (15:43)
[2019-11-27] MEDS: Polyethylene Glycol 3350 17 GM PACKET PO SCH (08:14)
[2019-11-27] MEDS: Sulfamethox/Trimethoprim DS TAB 800/160 mg PO SCH (08:16)
[2019-11-27] MEDS: Tiotropium Brom/Olodaterol MDI INH SCH (11:53)
[2019-11-27] MEDS: Anidulafungin 100 MG in NS 0.9% 100 ml BAG 100 ML IVPB SCH (15:48)
[2019-11-28] MEDS: Tiotropium Brom/Olodaterol MDI INH SCH (08:53)
[2019-11-28] MEDS: Polyethylene Glycol 3350 17 GM PACKET PO SCH (08:58)
[2019-11-28] MEDS: oxyCODONE/Acetamin 5/325 mg TAB PO PRN ×2 (13:10→21:02)
[2019-11-28] MEDS: Anidulafungin 100 MG in NS 0.9% 100 ml BAG 100 ML IVPB SCH (15:35)
[2019-11-28] MEDS: Vitamins A & D OINT 42.5 GM TUBE TOPICAL SCH ×2 (16:25→21:03)
[2019-11-29] MEDS: Tiotropium Brom/Olodaterol MDI INH SCH (09:42)
[2019-11-29] MEDS: Polyethylene Glycol 3350 17 GM PACKET PO SCH ×2 (09:42→19:38)
[2019-11-29] MEDS: oxyCODONE/Acetamin 5/325 mg TAB PO PRN ×2 (09:45→18:39)
[2019-11-29] MEDS: Vitamins A & D OINT 42.5 GM TUBE TOPICAL SCH ×3 (09:54→19:39)
[2019-11-29] MEDS: Magnesium Hydroxide LIQ 30 ML UDC PO SCH ×2 (14:29→19:38)
[2019-11-29] MEDS: Anidulafungin 100 MG in NS 0.9% 100 ml BAG 100 ML IVPB SCH (16:17)
[2019-11-30] MEDS: Polyethylene Glycol 3350 17 GM PACKET PO SCH ×2 (08:00→20:06)
[2019-11-30] MEDS: Magnesium Hydroxide LIQ 30 ML UDC PO SCH ×2 (08:00→20:06)
[2019-11-30] MEDS: Sulfamethox/Trimethoprim DS TAB 800/160 mg PO SCH (08:01)
[2019-11-30] MEDS: Vitamins A & D OINT 42.5 GM TUBE TOPICAL SCH ×2 (08:22→23:39)
[2019-11-30] MEDS: Tiotropium Brom/Olodaterol MDI INH SCH (08:23)
[2019-11-30] MEDS ORDERED: fentaNYL 100 mcg/2 ml 50 MCG/ML VIAL ONE (08:54)
[2019-11-30] MEDS ORDERED: Midazolam 5 mg/5 ml VIAL 1 mg/ml 5 ml VIAL (5 mg) ONE (08:54)
[2019-11-30] MEDS ORDERED: Naloxone 0.4 mg VIAL 0.4 mg/ml 1 ml VIAL ONE (08:54)
[2019-11-30] MEDS ORDERED: Flumazenil 0.5 mg/5 ml 0.1 MG/ML 5 ml VIAL ONE (08:54)
[2019-11-30 11:08] LABS: Hematocrit 29 % (42-52); Hemoglobin 9.6 g/dL (14.0-18.0); Mean Corpuscular HGB Conc 33 g/dL (31-36); Mean Corpuscular Hemoglobin 33 pg (27-31); Mean Corpuscular Volume 99 fL (80-94); Mean Platelet Volume 7.1 fL (7.4-10.4); Platelet Count 249 10^3/uL (150-450); Red Blood Count 2.95 10^6 /uL (4.18-5.48); Red Cell Distribution Width 20 % (10-15); White Blood Count 9.2 10^3/uL (3.5-10.8)
[2019-11-30 11:25] LABS: Albumin 2.8 g/dL (3.2-5.2); Albumin/Globulin Ratio 1.3 (1-3); BUN/Creatinine Ratio 24.7 (8-20); Calcium 7.9 mg/dL (8.6-10.3); EGFR Non-African American 93.4 (>60); Globulin 2.2 g/dL (2-4); Magnesium 1.9 mg/dL (1.9-2.7); Phosphorus 2.2 mg/dL (2.5-5.0); Potassium 3.9 mmol/L (3.5-5.0); Total Bilirubin 0.3 mg/dL (0.2-1.0)
[2019-11-30] MEDS: Anidulafungin 100 MG in NS 0.9% 100 ml BAG 100 ML IVPB SCH (15:04)
[2019-11-30 16:10] LABS: C Reactive Protein 13.21 mg/L (<8.01)
[2019-12-01] MEDS: Magnesium Hydroxide LIQ 30 ML UDC PO SCH ×2 (09:07→21:58)
[2019-12-01] MEDS: Polyethylene Glycol 3350 17 GM PACKET PO SCH ×2 (09:07→21:58)
[2019-12-01] MEDS: Tiotropium Brom/Olodaterol MDI INH SCH (09:08)
[2019-12-01] MEDS: Vitamins A & D OINT 42.5 GM TUBE TOPICAL SCH ×2 (09:09→23:19)
[2019-12-01] MEDS: Nitro 2% OINT (Nitroglycerin) 1 INCH/PAK TOPICAL SCH (12:29)
[2019-12-01] MEDS: Anidulafungin 100 MG in NS 0.9% 100 ml BAG 100 ML IVPB SCH (14:59)
[2019-12-01] MEDS ORDERED: Nitro OINT Remove TOPICAL ONE (18:00)
[2019-12-02] MEDS: Nitro 2% OINT (Nitroglycerin) 1 INCH/PAK TOPICAL SCH ×2 (05:57→12:23)
[2019-12-02] MEDS: Tiotropium Brom/Olodaterol MDI INH SCH (07:54)
[2019-12-02] MEDS: Sulfamethox/Trimethoprim DS TAB 800/160 mg PO SCH (09:00)
[2019-12-02] MEDS: Vitamins A & D OINT 42.5 GM TUBE TOPICAL SCH ×2 (09:04→22:05)
[2019-12-02] MEDS: Polyethylene Glycol 3350 17 GM PACKET PO SCH ×2 (09:08→21:58)
[2019-12-02] MEDS: Magnesium Hydroxide LIQ 30 ML UDC PO SCH ×2 (09:09→21:24)
[2019-12-02] MEDS: Anidulafungin 100 MG in NS 0.9% 100 ml BAG 100 ML IVPB SCH (16:02)
[2019-12-03] MEDS: Nitro 2% OINT (Nitroglycerin) 1 INCH/PAK TOPICAL SCH (06:12)
[2019-12-03] MEDS: Magnesium Hydroxide LIQ 30 ML UDC PO SCH (08:18)
[2019-12-03] MEDS: Tiotropium Brom/Olodaterol MDI INH SCH (08:20)
[2019-12-03] MEDS: Vitamins A & D OINT 42.5 GM TUBE TOPICAL SCH (08:21)
[2019-12-03] MEDS: Polyethylene Glycol 3350 17 GM PACKET PO SCH (08:24)
[2019-12-03] MEDS ORDERED: Albuterol HFA INHALER 8 gm MDI INH PRN (10:30)
[2019-12-03 11:22] VITALS: BP 124/64
[2019-12-03] MEDS: Anidulafungin 100 MG in NS 0.9% 100 ml BAG 100 ML IVPB SCH (15:00)
== END 2019-12-03 14:59 | disposition swing bed (61) | DRG 314 ==
LOC: SSU 12:09
PROVIDERS: ADMIT Surgery; ATTEND Surgery

== ENCOUNTER 2019-12-03 12:44 | Inpatient (IN) ==
[2019-12-03] MEDS ORDERED: oxyCODONE/Acetamin 5/325 mg TAB PO PRN (18:01)
[2019-12-03] MEDS ORDERED: Ondansetron 4 mg VIAL 2 MG/ML 2 ml VIAL IV PRN (18:03)
[2019-12-03] MEDS: Vitamins A & D OINT 42.5 GM TUBE TOPICAL SCH (21:57)
[2019-12-03] MEDS: Magnesium Hydroxide LIQ 30 ML UDC PO SCH (21:58)
[2019-12-03] MEDS: Polyethylene Glycol 3350 17 GM PACKET PO SCH (21:58)
[2019-12-04] MEDS: Tiotropium Brom/Olodaterol MDI INH SCH (07:32)
[2019-12-04] MEDS: Polyethylene Glycol 3350 17 GM PACKET PO SCH ×2 (09:22→21:29)
[2019-12-04] MEDS: Magnesium Hydroxide LIQ 30 ML UDC PO SCH ×2 (09:22→21:29)
[2019-12-04] MEDS: Sulfamethox/Trimethoprim DS TAB 800/160 mg PO SCH (09:28)
[2019-12-04] MEDS: Vitamins A & D OINT 42.5 GM TUBE TOPICAL SCH (09:29)
[2019-12-04] MEDS: Anidulafungin 100 MG in NS 0.9% 100 ml BAG 100 ML IVPB SCH (16:10)
[2019-12-05] MEDS: Vitamins A & D OINT 42.5 GM TUBE TOPICAL SCH ×3 (06:52→21:29)
[2019-12-05] MEDS: Tiotropium Brom/Olodaterol MDI INH SCH (07:40)
[2019-12-05] MEDS: Magnesium Hydroxide LIQ 30 ML UDC PO SCH ×2 (08:53→19:35)
[2019-12-05] MEDS: Polyethylene Glycol 3350 17 GM PACKET PO SCH ×2 (08:53→19:36)
[2019-12-05] MEDS: Anidulafungin 100 MG in NS 0.9% 100 ml BAG 100 ML IVPB SCH (15:08)
[2019-12-06] MEDS: Tiotropium Brom/Olodaterol MDI INH SCH (07:47)
[2019-12-06] MEDS: Polyethylene Glycol 3350 17 GM PACKET PO SCH ×2 (08:11→21:32)
[2019-12-06] MEDS: Magnesium Hydroxide LIQ 30 ML UDC PO SCH ×2 (08:11→21:32)
[2019-12-06] MEDS: Vitamins A & D OINT 42.5 GM TUBE TOPICAL SCH ×2 (08:12→21:35)
[2019-12-06] MEDS: Anidulafungin 100 MG in NS 0.9% 100 ml BAG 100 ML IVPB SCH (15:08)
[2019-12-07] MEDS: Tiotropium Brom/Olodaterol MDI INH SCH (07:42)
[2019-12-07] MEDS: Magnesium Hydroxide LIQ 30 ML UDC PO SCH ×2 (08:23→20:23)
[2019-12-07] MEDS: Vitamins A & D OINT 42.5 GM TUBE TOPICAL SCH ×2 (08:23→19:15)
[2019-12-07] MEDS: Polyethylene Glycol 3350 17 GM PACKET PO SCH ×2 (08:23→20:23)
[2019-12-07] MEDS: Sulfamethox/Trimethoprim DS TAB 800/160 mg PO SCH (09:27)
[2019-12-07] MEDS: Anidulafungin 100 MG in NS 0.9% 100 ml BAG 100 ML IVPB SCH (16:09)
[2019-12-08] MEDS: Tiotropium Brom/Olodaterol MDI INH SCH (07:55)
[2019-12-08 08:31] LABS: Hematocrit 33 % (42-52); Hemoglobin 10.7 g/dL (14.0-18.0); Mean Corpuscular HGB Conc 33 g/dL (31-36); Mean Corpuscular Hemoglobin 32 pg (27-31); Mean Corpuscular Volume 97 fL (80-94); Mean Platelet Volume 7.2 fL (7.4-10.4); Platelet Count 308 10^3/uL (150-450); Red Blood Count 3.39 10^6 /uL (4.18-5.48); Red Cell Distribution Width 19 % (10-15); White Blood Count 8.8 10^3/uL (3.5-10.8)
[2019-12-08 08:42] LABS: Albumin 3.4 g/dL (3.2-5.2); Albumin/Globulin Ratio 1.3 (1-3); BUN/Creatinine Ratio 26.3 (8-20); C Reactive Protein 7.98 mg/L (<8.01); Calcium 8.8 mg/dL (8.6-10.3); EGFR African American 89.7 (>60); EGFR Non-African American 74.1 (>60); Globulin 2.6 g/dL (2-4); Total Bilirubin 0.4 mg/dL (0.2-1.0)
[2019-12-08 09:04] LABS: ABS Lymphocytes 0.6 10^3/ul (1.0-4.8); ABS Monocytes 0.9 10^3/ul (0-0.8); ABS Neutrophils 7.2 10^3/ul (1.5-7.7); Eosinophil % 0.4 %; Lymphocyte % 7.2 %; Nucleated Red Blood Cells % 0.1
[2019-12-08] MEDS: Magnesium Hydroxide LIQ 30 ML UDC PO SCH ×2 (09:42→21:51)
[2019-12-08] MEDS: Polyethylene Glycol 3350 17 GM PACKET PO SCH ×2 (09:42→20:00)
[2019-12-08] MEDS: Vitamins A & D OINT 42.5 GM TUBE TOPICAL SCH (09:43)
[2019-12-08] MEDS: Anidulafungin 100 MG in NS 0.9% 100 ml BAG 100 ML IVPB SCH (15:51)
[2019-12-09] MEDS: Vitamins A & D OINT 42.5 GM TUBE TOPICAL SCH ×2 (02:41→09:04)
[2019-12-09] MEDS: Magnesium Hydroxide LIQ 30 ML UDC PO SCH (09:01)
[2019-12-09] MEDS: Polyethylene Glycol 3350 17 GM PACKET PO SCH (09:02)
[2019-12-09] MEDS: Tiotropium Brom/Olodaterol MDI INH SCH (09:09)
[2019-12-09 09:12] VITALS: BP 138/84
[2019-12-09] MEDS: Sulfamethox/Trimethoprim DS TAB 800/160 mg PO SCH (09:20)
[2019-12-09] MEDS: Anidulafungin 100 MG in NS 0.9% 100 ml BAG 100 ML IVPB SCH ×2 (12:26→13:31)
== END 2019-12-09 15:15 | disposition home health service (06) | DRG 867 ==
LOC: MED 15:50
PROVIDERS: ADMIT Surgery; ATTEND Surgery

== ENCOUNTER 2020-05-25 07:30 | Inpatient (IN) ==
[2020-07-13] MEDS ORDERED: Ertapenem 1 GM in NS 0.9% 50 ML BAG IVPB SCH
[2020-07-13] MEDS ORDERED: Lactated Ringers 1000 ml BAG 1,000 ML IV SCH (06:00)
[2020-07-13] MEDS ORDERED: Buffered Lidocaine 1% SYRIN 1 ml INTRADERM ONE (06:00)
[2020-07-13] MEDS ORDERED: Ondansetron ODT 4 mg TAB 4 MG TAB PO ONE (06:00)
[2020-07-13] MEDS ORDERED: Ondansetron ODT 4 mg TAB 4 MG TAB ONE (06:15)
[2020-07-13] MEDS ORDERED: Heparin 5000 UNITS/ML 1 mL VIAL ONE (06:15)
[2020-07-13] MEDS ORDERED: Midazolam 5 mg/5 ml VIAL 1 mg/ml 5 ml VIAL (5 mg) ONE (07:42)
[2020-07-13] MEDS ORDERED: fentaNYL 100 mcg/2 ml 50 MCG/ML VIAL ONE (07:42)
[2020-07-13] MEDS ORDERED: Rocuronium 50 mg VIAL 10 mg/ml 5 ml VIAL (50 mg) ONE ×2 (07:42→10:36)
[2020-07-13] MEDS ORDERED: Ropivacaine (OR use only) 2 MG/ML 10 ML ONE (07:52)
[2020-07-13 08:06] LABS: INR 1.16 (0.82-1.09)
[2020-07-13 08:08] LABS: BUN/Creatinine Ratio 15.8 (8-20); Blood Urea Nitrogen 19 mg/dL (6-24); CO2 Carbon Dioxide 23 mmol/L (22-32); Calcium 9.3 mg/dL (8.6-10.3); Chloride 106 mmol/L (101-111); EGFR African American 71.6 (>60); EGFR Non-African American 59.2 (>60); Glucose 97 mg/dL (70-100); Sodium 137 mmol/L (135-145)
[2020-07-13 08:33] LABS: Anion Gap 8 mmol/L (2-11)
[2020-07-13] MEDS ORDERED: Ketamine HCL 50 mg/ml 10 ml VIAL (500 MG) ONE (08:59)
[2020-07-13] MEDS ORDERED: Bupivacaine 0.25% EPI 200,000 30 ML SDV ONE (09:41)
[2020-07-13] MEDS ORDERED: DiMENhydriNATE IV 50 mg/ml 1 ml VIAL IV PUSH PRN (10:16)
[2020-07-13] MEDS ORDERED: Naloxone 0.4 mg VIAL 0.4 mg/ml 1 ml VIAL IV PRN (10:16)
[2020-07-13] MEDS ORDERED: HYDROmorphone 1 MG/1 ML SYRINGE IV PRN (10:16)
[2020-07-13] MEDS ORDERED: Levalbuterol 0.63MG/3ML NEB UNIT OF USE INH PRN (10:16)
[2020-07-13] MEDS ORDERED: Glycopyrrolate IV 0.2 MG/ML 1 ML VIAL ONE ×2 (10:19→11:16)
[2020-07-13] MEDS ORDERED: Dexmedetomidine 200 mcg/2 ml 2 ml VIAL (200 mcg) ONE (10:19)
[2020-07-13] MEDS ORDERED: EPHEDrine (Pressors) 50 MG/ML VIAL ONE (10:19)
[2020-07-13] MEDS ORDERED: Ondansetron 4 mg VIAL 2 MG/ML 2 ml VIAL ONE (10:19)
[2020-07-13] MEDS ORDERED: Succinylcholine 200 mg VIAL 20 mg/ml 10 ml VIAL (200 mg) ONE (10:19)
[2020-07-13] MEDS ORDERED: Dexamethasone IV 4 MG/ML VIAL 1 ml VIAL ONE (10:19)
[2020-07-13] MEDS ORDERED: Propofol 10 MG/ML 20 ML BTL ONE (10:19)
[2020-07-13] MEDS ORDERED: HYDROmorphone 1 MG/1 ML SYRINGE ONE (10:20)
[2020-07-13] MEDS ORDERED: Phenylephrine 40 mcg/mL 10mL (400mcg) SYRINGE ONE (10:21)
[2020-07-13] MEDS ORDERED: Phenylephrine IV 10 MG/ML 1 ml VIAL ONE (10:21)
[2020-07-13] MEDS ORDERED: Acetaminophen IV 1 GM/100ML 100 ML ONE (10:23)
[2020-07-13] MEDS ORDERED: Sugammadex 500 MG/5 ML 5 ml VIAL IV PUSH ONE (11:41)
[2020-07-13] MEDS ORDERED: HYDROmorphone 1 MG/1 ML SYRINGE IV SLOW PU PRN (12:56)
[2020-07-13] MEDS ORDERED: Ondansetron 4 mg VIAL 2 MG/ML 2 ml VIAL IV PRN (12:58)
[2020-07-13] MEDS: Lactated Ringers 1000 ml BAG 1,000 ML IV SCH ×2 (14:00→22:04)
[2020-07-13] MEDS: Heparin 5000 UNITS/ML 1 mL VIAL SUBCUT SCH ×2 (16:37→21:44)
[2020-07-13] MEDS: Famotidine IV 10 MG/ML 2 ml VIAL (20 mg) IV SLOW PU SCH (20:00)
[2020-07-14] MEDS: HYDROmorphone 0.5 MG/0.5 ML SYRINGE IV SLOW PU PRN ×2 (04:30→11:59)
[2020-07-14] MEDS: Heparin 5000 UNITS/ML 1 mL VIAL SUBCUT SCH ×3 (06:06→21:33)
[2020-07-14] MEDS: Lactated Ringers 1000 ml BAG 1,000 ML IV SCH ×2 (06:06→15:09)
[2020-07-14 06:33] LABS: ABS Lymphocytes 0.6 10^3/ul (1.0-4.8); ABS Monocytes 1.1 10^3/ul (0-0.8); ABS Neutrophils 10.5 10^3/ul (1.5-7.7); Eosinophil % 0.1 %; Hematocrit 28 % (42-52); Lymphocyte % 5.1 %; Mean Corpuscular HGB Conc 32 g/dL (31-36); Mean Corpuscular Hemoglobin 26 pg (27-31); Mean Corpuscular Volume 80 fL (80-94); Mean Platelet Volume 7.3 fL (7.4-10.4); Platelet Count 286 10^3/uL (150-450); Red Blood Count 3.51 10^6 /uL (4.18-5.48); Red Cell Distribution Width 19 % (10-15); White Blood Count 12.2 10^3/uL (3.5-10.8)
[2020-07-14 06:48] LABS: Calcium 8.6 mg/dL (8.6-10.3); EGFR African American 77.5 (>60); EGFR Non-African American 64.1 (>60); Potassium 4.2 mmol/L (3.5-5.0)
[2020-07-14] MEDS: Aspirin EC 81 mg TAB.EC (enteric coated) PO SCH (07:58)
[2020-07-14] MEDS: Tiotropium Brom/Olodaterol MDI INH SCH (07:58)
[2020-07-14] MEDS: Famotidine IV 10 MG/ML 2 ml VIAL (20 mg) IV SLOW PU SCH ×2 (07:58→20:41)
[2020-07-14] MEDS ORDERED: HYDROmorphone 0.5 MG/0.5 ML SYRINGE IV SLOW PU PRN (12:40)
[2020-07-14] MEDS: HYDROmorphone 1 MG/1 ML SYRINGE IV SLOW PU PRN (18:36)
[2020-07-15] MEDS: Lactated Ringers 1000 ml BAG 1,000 ML IV SCH ×2 (04:04→17:06)
[2020-07-15] MEDS: Heparin 5000 UNITS/ML 1 mL VIAL SUBCUT SCH ×3 (06:27→20:43)
[2020-07-15 07:04] LABS: BUN/Creatinine Ratio 13.5 (8-20); Calcium 8.7 mg/dL (8.6-10.3); EGFR African American 78.4 (>60); EGFR Non-African American 64.8 (>60); Potassium 3.9 mmol/L (3.5-5.0)
[2020-07-15] MEDS: Tiotropium Brom/Olodaterol MDI INH SCH (07:18)
[2020-07-15] MEDS: Aspirin EC 81 mg TAB.EC (enteric coated) PO SCH (08:03)
[2020-07-15] MEDS: Famotidine IV 10 MG/ML 2 ml VIAL (20 mg) IV SLOW PU SCH ×2 (08:03→20:37)
[2020-07-15] MEDS: HYDROmorphone 1 MG/1 ML SYRINGE IV SLOW PU PRN (18:37)
[2020-07-16] MEDS: Heparin 5000 UNITS/ML 1 mL VIAL SUBCUT SCH (05:49)
[2020-07-16] MEDS: Lactated Ringers 1000 ml BAG 1,000 ML IV SCH (06:20)
[2020-07-16] MEDS: Tiotropium Brom/Olodaterol MDI INH SCH (08:51)
[2020-07-16] MEDS: Aspirin EC 81 mg TAB.EC (enteric coated) PO SCH (09:04)
[2020-07-16] MEDS ORDERED: HYDROcodone/ACETAMIN 5/325 mg TAB PO PRN (09:04)
[2020-07-16] MEDS: Famotidine IV 10 MG/ML 2 ml VIAL (20 mg) IV SLOW PU SCH (09:05)
[2020-07-16] MEDS ORDERED: Senna TAB 8.6 mg TAB PO PRN (12:26)
[2020-07-16] MEDS: Polyethylene Glycol 3350 17 GM PACKET PO SCH (19:59)
[2020-07-17] MEDS: Tiotropium Brom/Olodaterol MDI INH SCH (07:24)
[2020-07-17] MEDS: Polyethylene Glycol 3350 17 GM PACKET PO SCH ×2 (10:34→20:37)
[2020-07-17] MEDS: Aspirin EC 81 mg TAB.EC (enteric coated) PO SCH (10:40)
[2020-07-18] MEDS: Polyethylene Glycol 3350 17 GM PACKET PO SCH (07:15)
[2020-07-18] MEDS: Tiotropium Brom/Olodaterol MDI INH SCH (08:36)
[2020-07-18] MEDS: Aspirin EC 81 mg TAB.EC (enteric coated) PO SCH (08:51)
[2020-07-18] MEDS ORDERED: Morphine 2 MG/ML SYRINGE IV PRN (11:08)
[2020-07-18 11:16] VITALS: BP 124/55
[2020-07-18] MEDS ORDERED: Morphine 2 MG/ML SYRINGE ONE (11:18)
== END 2020-07-18 12:40 | disposition home or self-care (01) | DRG 330 ==
LOC: AA 07-13 05:56 → SSU 07-13 13:54
PROVIDERS: ADMIT Surgery; ATTEND Surgery

== ENCOUNTER 2022-07-16 11:45 | Inpatient (IN) ==
[2022-07-16] MEDS ORDERED: Lactated Ringers 1000 ml BAG 1,000 ML IV ONE (12:52)
[2022-07-16 13:54] LABS: ABS Lymphocytes 0.7 10^3/ul (1.0-4.8); ABS Monocytes 0.9 10^3/ul (0-0.8); ABS Neutrophils 6.9 10^3/ul (1.5-7.7); Eosinophil % 0.3 %; Hematocrit 43 % (42-52); Hemoglobin 14.1 g/dL (14.0-18.0); Lymphocyte % 8.6 %; Mean Corpuscular HGB Conc 33 g/dL (31-36); Mean Corpuscular Hemoglobin 32 pg (27-31); Mean Corpuscular Volume 99 fL (80-94); Mean Platelet Volume 8.1 fL (7.4-10.4); Nucleated Red Blood Cells % 0.1; Platelet Count 237 10^3/uL (150-450); Red Blood Count 4.35 10^6 /uL (4.18-5.48); Red Cell Distribution Width 16 % (10-15); White Blood Count 8.5 10^3/uL (3.5-10.8)
[2022-07-16 14:02] LABS: Activated Partial Thrombo Time 30.7 seconds (26.0-38.0); INR 1.15 (0.88-1.18)
[2022-07-16 14:36] LABS: Albumin 3.9 g/dL (3.2-5.2); Albumin/Globulin Ratio 1.7 (1-3); Calcium 9.6 mg/dL (8.6-10.3); Creatinine, Serum 0.89 mg/dL (0.67-1.17); Globulin 2.3 g/dL (2-4); Magnesium 1.7 mg/dL (1.9-2.7); Potassium 3.8 mmol/L (3.5-5.0); Total Bilirubin 0.9 mg/dL (0.2-1.0); Total Protein 6.2 g/dL (6.4-8.9); eGFR CKD-EPI 88.8 (>60)
[2022-07-16 14:45] LABS: TSH Ultra Thyroid Stim Horm 2.45 mcIU/mL (0.34-5.60)
[2022-07-16 15:20] LABS: High Sensitivity Troponin 1 Hr 16 pg/mL (<20)
[2022-07-16 16:45] LABS: Urine Appearance Clear; Urine Bilirubin Negative (Negative); Urine Blood Negative (Negative); Urine Color Amber; Urine Glucose Negative (Negative); Urine Ketones 2+ (Negative); Urine Nitrite Negative (Negative); Urine Protein Negative (Negative); Urine Specific Gravity 1.026 (1.002-1.030); Urine Urobilinogen Positive (Negative)
[2022-07-16] MEDS ORDERED: Lactated Ringers 1000 ml BAG 1,000 ML IV SCH (19:00)
[2022-07-16] MEDS ORDERED: Albuterol HFA INHALER 8 gm MDI INH PRN (20:23)
[2022-07-16] MEDS: Enoxaparin 40 MG/0.4 ML SYR SUBCUT SCH (22:26)
[2022-07-17 06:17] LABS: ABS Lymphocytes 0.4 10^3/ul (1.0-4.8); ABS Monocytes 0.1 10^3/ul (0-0.8); ABS Neutrophils 6.5 10^3/ul (1.5-7.7); Hematocrit 41 % (42-52); Hemoglobin 14.2 g/dL (14.0-18.0); Lymphocyte % 5.8 %; Mean Corpuscular HGB Conc 34 g/dL (31-36); Mean Corpuscular Hemoglobin 34 pg (27-31); Mean Corpuscular Volume 100 fL (80-94); Platelet Count 206 10^3/uL (150-450); Red Blood Count 4.13 10^6 /uL (4.18-5.48); Red Cell Distribution Width 16 % (10-15)
[2022-07-17 06:51] LABS: Calcium 9.2 mg/dL (8.6-10.3); Creatinine, Serum 0.89 mg/dL (0.67-1.17); Magnesium 1.6 mg/dL (1.9-2.7); Potassium 4.1 mmol/L (3.5-5.0); eGFR CKD-EPI 88.8 (>60)
[2022-07-17] MEDS ORDERED: Magnesium Sulfate IV 3 GM in NS 0.9% 100 ml BAG 100 ML IVPB ONE (08:00)
[2022-07-17] MEDS: Aspirin EC 81 mg TAB.EC (enteric coated) PO SCH (10:07)
[2022-07-17] MEDS: CMCS: FLUTICAS/UMECLI/VILANT 100-62.5-25 MDI (NF) INH SCH (13:18)
[2022-07-17] MEDS ORDERED: Gadoteridol (CONTRAST) 279.3 MG/ML 10 ML IV ONE (17:25)
[2022-07-17] MEDS: Enoxaparin 40 MG/0.4 ML SYR SUBCUT SCH (20:57)
[2022-07-18] MEDS: CMCS: FLUTICAS/UMECLI/VILANT 100-62.5-25 MDI (NF) INH SCH (07:41)
[2022-07-18] MEDS: Aspirin EC 81 mg TAB.EC (enteric coated) PO SCH (08:43)
[2022-07-18 09:08] LABS: Hematocrit 42 % (42-52); Hemoglobin 13.8 g/dL (14.0-18.0); Mean Corpuscular HGB Conc 33 g/dL (31-36); Mean Corpuscular Hemoglobin 33 pg (27-31); Mean Corpuscular Volume 100 fL (80-94); Mean Platelet Volume 8.3 fL (7.4-10.4); Platelet Count 213 10^3/uL (150-450); Red Blood Count 4.19 10^6 /uL (4.18-5.48); Red Cell Distribution Width 16 % (10-15); White Blood Count 13.1 10^3/uL (3.5-10.8)
[2022-07-18 10:03] LABS: Calcium 9.5 mg/dL (8.6-10.3); Creatinine, Serum 0.97 mg/dL (0.67-1.17); Magnesium 1.9 mg/dL (1.9-2.7); Phosphorus 2.3 mg/dL (2.5-5.0); Potassium 4.1 mmol/L (3.5-5.0); eGFR CKD-EPI 80.9 (>60)
[2022-07-18] MEDS ORDERED: Dexamethasone IV 4 MG/ML VIAL 1 ml VIAL IV SLOW PU ONE (10:14)
[2022-07-18 10:39] LABS: ABS Lymphocytes 0.7 10^3/ul (1.0-4.8); ABS Monocytes 1.1 10^3/ul (0-0.8); ABS Neutrophils 11.2 10^3/ul (1.5-7.7); Lymphocyte % 5.7 %
[2022-07-18] MEDS: Nystatin SUSPENSION 100,000 UNITS/ML UDC PO SCH ×3 (13:55→19:35)
[2022-07-19 06:27] LABS: ABS Lymphocytes 0.6 10^3/ul (1.0-4.8); ABS Monocytes 0.6 10^3/ul (0-0.8); ABS Neutrophils 8.7 10^3/ul (1.5-7.7); Hematocrit 40 % (42-52); Hemoglobin 13.5 g/dL (14.0-18.0); Lymphocyte % 5.9 %; Mean Corpuscular HGB Conc 34 g/dL (31-36); Mean Corpuscular Hemoglobin 34 pg (27-31); Mean Corpuscular Volume 99 fL (80-94); Mean Platelet Volume 8.9 fL (7.4-10.4); Platelet Count 193 10^3/uL (150-450); Red Blood Count 4.02 10^6 /uL (4.18-5.48); Red Cell Distribution Width 15 % (10-15); White Blood Count 9.8 10^3/uL (3.5-10.8)
[2022-07-19 06:42] LABS: Creatinine, Serum 0.85 mg/dL (0.67-1.17); Magnesium 1.8 mg/dL (1.9-2.7); eGFR CKD-EPI 90.1 (>60)
[2022-07-19] MEDS ORDERED: Magnesium Sulfate 2 gm BAG 2 GM/50 ML BAG IVPB ONE (07:16)
[2022-07-19] MEDS: CMCS: FLUTICAS/UMECLI/VILANT 100-62.5-25 MDI (NF) INH SCH (08:01)
[2022-07-19] MEDS: Nystatin SUSPENSION 100,000 UNITS/ML UDC PO SCH ×4 (09:19→21:00)
[2022-07-19] MEDS: Docusate LIQ 100 MG/10 ML UDC PO PRN (17:14)
[2022-07-20 05:43] LABS: ABS Lymphocytes 0.6 10^3/ul (1.0-4.8); ABS Monocytes 0.5 10^3/ul (0-0.8); ABS Neutrophils 10.2 10^3/ul (1.5-7.7); Hematocrit 39 % (42-52); Hemoglobin 12.8 g/dL (14.0-18.0); Lymphocyte % 5.4 %; Mean Corpuscular HGB Conc 33 g/dL (31-36); Mean Corpuscular Hemoglobin 32 pg (27-31); Mean Corpuscular Volume 98 fL (80-94); Mean Platelet Volume 8.8 fL (7.4-10.4); Platelet Count 183 10^3/uL (150-450); Red Blood Count 3.99 10^6 /uL (4.18-5.48); Red Cell Distribution Width 16 % (10-15); White Blood Count 11.3 10^3/uL (3.5-10.8)
[2022-07-20 06:02] LABS: Calcium 8.8 mg/dL (8.6-10.3); Creatinine, Serum 0.99 mg/dL (0.67-1.17); Magnesium 1.9 mg/dL (1.9-2.7); Potassium 4.1 mmol/L (3.5-5.0); eGFR CKD-EPI 78.9 (>60)
[2022-07-20] MEDS: Nystatin SUSPENSION 100,000 UNITS/ML UDC PO SCH ×4 (08:05→20:45)
[2022-07-20] MEDS: CMCS: FLUTICAS/UMECLI/VILANT 100-62.5-25 MDI (NF) INH SCH (08:34)
[2022-07-20] MEDS: Docusate LIQ 100 MG/10 ML UDC PO PRN (14:12)
[2022-07-21 06:14] LABS: ABS Lymphocytes 0.6 10^3/ul (1.0-4.8); ABS Monocytes 0.7 10^3/ul (0-0.8); ABS Neutrophils 10.3 10^3/ul (1.5-7.7); Hematocrit 39 % (42-52); Hemoglobin 12.7 g/dL (14.0-18.0); Lymphocyte % 5.3 %; Mean Corpuscular HGB Conc 33 g/dL (31-36); Mean Corpuscular Hemoglobin 32 pg (27-31); Mean Corpuscular Volume 98 fL (80-94); Mean Platelet Volume 9.2 fL (7.4-10.4); Platelet Count 178 10^3/uL (150-450); Red Blood Count 3.94 10^6 /uL (4.18-5.48); Red Cell Distribution Width 15 % (10-15); White Blood Count 11.7 10^3/uL (3.5-10.8)
[2022-07-21 06:31] LABS: Calcium 8.7 mg/dL (8.6-10.3); Creatinine, Serum 0.93 mg/dL (0.67-1.17); Magnesium 1.7 mg/dL (1.9-2.7); Potassium 4.1 mmol/L (3.5-5.0); eGFR CKD-EPI 85.1 (>60)
[2022-07-21] MEDS: CMCS: FLUTICAS/UMECLI/VILANT 100-62.5-25 MDI (NF) INH SCH (07:55)
[2022-07-21] MEDS ORDERED: Magnesium Sulfate 2 gm BAG 2 GM/50 ML BAG IVPB ONE (08:00)
[2022-07-21] MEDS: Nystatin SUSPENSION 100,000 UNITS/ML UDC PO SCH ×4 (08:28→21:06)
[2022-07-21] MEDS ORDERED: Magnesium Hydroxide LIQ 30 ML UDC PO PRN (13:06)
[2022-07-22] MEDS: CMCS: FLUTICAS/UMECLI/VILANT 100-62.5-25 MDI (NF) INH SCH (07:33)
[2022-07-22] MEDS: Nystatin SUSPENSION 100,000 UNITS/ML UDC PO SCH ×4 (09:49→20:06)
[2022-07-23] MEDS: CMCS: FLUTICAS/UMECLI/VILANT 100-62.5-25 MDI (NF) INH SCH (07:41)
[2022-07-23] MEDS: Nystatin SUSPENSION 100,000 UNITS/ML UDC PO SCH ×3 (08:37→17:39)
[2022-07-24] MEDS: CMCS: FLUTICAS/UMECLI/VILANT 100-62.5-25 MDI (NF) INH SCH (07:41)
[2022-07-25] MEDS: CMCS: FLUTICAS/UMECLI/VILANT 100-62.5-25 MDI (NF) INH SCH (07:15)
[2022-07-26] MEDS ORDERED: Senna TAB 8.6 mg TAB PO PRN (07:28)
[2022-07-26] MEDS ORDERED: Polyethylene Glycol 3350 17 GM PACKET PO PRN (07:28)
[2022-07-26] MEDS: CMCS: FLUTICAS/UMECLI/VILANT 100-62.5-25 MDI (NF) INH SCH (07:29)
[2022-07-27] MEDS: CMCS: FLUTICAS/UMECLI/VILANT 100-62.5-25 MDI (NF) INH SCH (08:00)
[2022-07-28] MEDS: CMCS: FLUTICAS/UMECLI/VILANT 100-62.5-25 MDI (NF) INH SCH (07:22)
[2022-07-29] MEDS: CMCS: FLUTICAS/UMECLI/VILANT 100-62.5-25 MDI (NF) INH SCH (07:37)
[2022-07-30] MEDS: CMCS: FLUTICAS/UMECLI/VILANT 100-62.5-25 MDI (NF) INH SCH (07:33)
[2022-07-30] MEDS: Polyethylene Glycol 3350 17 GM PACKET PO SCH (09:06)
[2022-07-31] MEDS: Polyethylene Glycol 3350 17 GM PACKET PO SCH (07:46)
[2022-07-31] MEDS: CMCS: FLUTICAS/UMECLI/VILANT 100-62.5-25 MDI (NF) INH SCH (08:09)
[2022-08-01] MEDS: CMCS: FLUTICAS/UMECLI/VILANT 100-62.5-25 MDI (NF) INH SCH (08:07)
[2022-08-01] MEDS: Polyethylene Glycol 3350 17 GM PACKET PO SCH (08:21)
[2022-08-02] MEDS: CMCS: FLUTICAS/UMECLI/VILANT 100-62.5-25 MDI (NF) INH SCH (07:21)
[2022-08-02 09:25] VITALS: BP 112/66
[2022-08-02] MEDS: Polyethylene Glycol 3350 17 GM PACKET PO SCH ×2 (10:20→10:21)
== END 2022-08-02 13:05 | disposition hospice, home (50) | DRG 54 ==
LOC: ED 11:45 → EDHOLD 11:45 → SUATTDRO 20:04 → MED 07-17 12:23
PROVIDERS: ADMIT Internal Medicine; ATTEND Student in an Organized Health Care Education/Training Program